=== PATIENT | female | born 1985 | race Caucasian/White ===

== ENCOUNTER 2021-01-27 01:05 | Emergency (ER) | payer SELFPAY ==
[2021-01-27] MEDS ORDERED: AUGMENTIN 875-1 EACH PO (03:14)
== END 2021-01-27 03:26 | disposition home or self-care (01) ==
LOC: FER 01:05
DX: H66.91 Otitis media, unspecified, right ear (principal); I10 Essential (primary) hypertension; F17.200 Nicotine dependence, unspecified, uncomplicated
CPT/HCPCS: 99282